=== PATIENT | female | born 1985 | race Caucasian/White ===

== ENCOUNTER 2017-03-18 06:37 | Day surgery (SDC) | payer OTHER ==
[~2017-03-18] VITALS: Ht 175.3 cm; Wt 108.1 kg
[~2017-03-18 06:37] MED LIST: MULTIVITAMIN PO
[2017-03-18] MEDS ORDERED: LACTATED RINGERS 1,000 ML IV SCH (07:24)
[2017-03-18 07:32] VITALS: BP 141/91
[2017-03-18 07:57] LABS: HCG UR OBC PASS
[2017-03-18] MEDS ORDERED: MIDAZOLAM 1 MG/ML, 2ML ONE (08:13)
[2017-03-18] MEDS ORDERED: FENTANYL PF 100 MCG/2ML ONE (08:13)
[2017-03-18] MEDS ORDERED: KETAMINE 10 MG/ML, 20ML ONE (08:13)
[2017-03-18] MEDS ORDERED: BUPIVACAINE/PF 0.25% ONE (08:14)
[2017-03-18] MEDS ORDERED: EPINEPHRINE 1 MG/ML, 1ML ONE (08:14)
[2017-03-18] MEDS ORDERED: OXYTOCIN 10 UNITS/ML, 1ML ONE (08:14)
[2017-03-18] MEDS ORDERED: LIDOCAINE/PF 1%, 30ML ONE (08:14)
[2017-03-18 08:19] LABS: HEMATOCRIT 40.9 % (34.6-47.8); HEMOGLOBIN 13.8 g/dL (11.7-16.4); WHITE BLOOD COUNT 7.1 x10^3/uL (3.4-10)
[2017-03-18] MEDS ORDERED: DEXAMETHASONE 4 MG/ML, 1ML ONE (08:40)
[2017-03-18] MEDS ORDERED: PROPOFOL 10 MG/ML, 20ML ONE (08:40)
[2017-03-18] MEDS ORDERED: PROPOFOL 10 MG/ML, 50ML ONE (08:40)
[2017-03-18] MEDS ORDERED: KETOROLAC 30 MG/1 ML ONE (08:40)
[2017-03-18] MEDS ORDERED: ONDANSETRON 2MG/ML, 2ML ONE (08:40)
[2017-03-18] MEDS ORDERED: HYDROmorphone 1 MG/ML, 1ML IV PRN (09:30)
[2017-03-18] MEDS ORDERED: FENTANYL PF 100 MCG/2ML IV PRN (09:30)
[2017-03-18] MEDS ORDERED: MEPERIDINE/PF 25MG/0.5ML IVPush PRN (09:30)
[2017-03-18] MEDS ORDERED: PROMETHAZINE 25 MG/ML, 1ML IV PRN (09:30)
[2017-03-18] MEDS ORDERED: OXYcodone 5 MG/5 ML ORAL.SOL UDC PO PRN (09:30)
[2017-03-18] MEDS ORDERED: ACETAMINOPHEN 325 MG TABLET PO PRN (09:30)
[2017-03-18] MEDS ORDERED: ACETAMINOPHEN 650 MG/20.3 ML UDC ONE (10:45)
== END 2017-03-18 11:50 ==
LOC: MERGE 06:37 → OUT 06:37
PROVIDERS: ATTEND Specialist
DX: Q52.70 Unspecified congenital malformations of vulva (principal); N93.9 Abnormal uterine and vaginal bleeding, unspecified; E66.9 Obesity, unspecified; Z68.35 Body mass index [BMI] 35.0-35.9, adult; Z88.6 Allergy status to analgesic agent
CPT/HCPCS: 36415; 56620; 58558; 81025; 85027; 88305; J0171; J2250; J3010; J3490; J7120; J1100; J1885; J2405; J2704; J2590